=== PATIENT | female | born 1955 | race Caucasian/White ===

== ENCOUNTER 2018-08-22 08:53 | Emergency (ER) | payer OTHER ==
[~2018-08-22] VITALS: Ht 160 cm; Wt 77.1 kg
[~2018-08-22 08:53] MED LIST: CARAFATE1 GM PO; CEFZIL250 MG; OMEPRAZOLE20 MG PO; Z.0.ATENOLOL25 MG; Z.0.BENTYL10 MG; Z.0.SIMVASTATIN10 MG PO; Z.0.SINGULAIR10 MG
[2018-08-22] MEDS ORDERED: MUPIROCIN 2% OINT 22 GM TUBE TOP ONE (09:15)
[2018-08-22] MEDS ORDERED: ACETAMINOPHEN 325 MG TAB PO ONE (10:00)
[2018-08-22] MEDS ORDERED: LIDOCAINE HCL 1% LOCAL INJ 20 ML VIAL INJ ONE (10:00)
== END 2018-08-22 10:01 | disposition home or self-care (01) ==
LOC: FSED 08:53
DX: S61.217A Laceration without foreign body of left little finger without damage to nail, initial encounter (principal); M25.561 Pain in right knee; W18.39XA Other fall on same level, initial encounter; Y92.22 Religious institution as the place of occurrence of the external cause
CPT/HCPCS: 12001; 99284; J2001

== ENCOUNTER 2020-08-12 21:41 | Emergency (ER) | payer MEDICARE, OTHER ==
[~2020-08-12] VITALS: Ht 160 cm; Wt 77.1 kg
[2020-08-12] MEDS ORDERED: ONDANSETRON HCL INJ 2MG/ML 2ML 2 MG/ML VIAL IV STA (22:12)
[2020-08-12] MEDS ORDERED: PANTOPRAZOLE 40 MG 10ML VIAL IV STA (22:12)
[2020-08-12] MEDS ORDERED: DICYCLOMINE HCL 20 MG/2 ML VIAL IM ONE ×2 (22:15→22:29)
[2020-08-12] MEDS ORDERED: MORPHINE SULFATE INJ 4 MG/ML INJ 1ML IV PRN (22:15)
[2020-08-12] MEDS ORDERED: ASPIRIN 81 MG CHEW TAB PO ONE (22:15)
--- NOTE | 2020-08-12 22:22 | Emergency Department Note ---
History of Present Illnes History of Present Illness Chief Complaint: Abdominal Complaints History of Present Illness This is a 64 year old female . Chief Complaint Comment 64 Y/O FEMALE PT AAOX3 PRESENTS TO THE ER C/O LLQ ABD PAIN WITH SLIGHT NAUSEA ONSET THIS AFTERNOON; PT DENIES DIARRHEA/FEVER; HX OF IBS; PT STATES SHE WAS PLANNING ON SEEING HER PCP IN THE AM BUT COULDN'T TAKE THE PAIN ANY LONGER; NAD NOTED AT THIS TIME; RESP EVEN/UNLABORED; SKIN WARM, DRY AND COLOR WNL FOR PT; 20G IV CATH PLACED IN RT FA; BLOOD OBTAINED FOR ANALYSIS; PT GIVEN SPECIMEN CUP FOR UA; ER MD IN TRIAGE FOR INITIAL EVAL. Historian: Patient Arrival Mode: Car Onset (how long ago): day(s) Severity: mild Duration (how long): day(s) Timing of current episode: constant Chronicity: new Past Medical/Family History Physician Review I have reviewed the patient's past medical and family history. Any updates have been documented here. Past Medical History Recent Fever: No Clinical Suspicion of Infectio: No New/Unexplained Change in Ment: No Past Medical History: GERD, Hyperlipedemia Other Medical History: IBS Past Surgical History: Cholecysctectomy, Hysterectomy, Other Surgery: LT ARM SX Other Last Tetanus: < 5 yrs Review of Systems Review of Systems Constitutional: Reports no symptoms EENTM: Reports no symptoms Cardiovascular: Reports no symptoms Respiratory: Reports no symptoms Gastrointestinal: Reports as per HPI, Reports abdominal pain Genitourinary: Reports no symptoms Musculoskeletal: Reports no symptoms Integumentary: Reports no symptoms Neurological: Reports no symptoms Psychological: Reports no symptoms Endocrine: Reports no symptoms Hematological/Lymphatic: Reports no symptoms Physical Exam Related Data Allergies: Coded Allergies: naproxen sodium (Verified Allergy, Unknown, 08/22/18) Triage Vital Signs Vital Signs Date Time Temp Pulse Resp B/P (MAP) Pulse Ox O2 Delivery O2 Flow Rate FiO2 08/12/20 22:04 98.6 89 20 148/84 98 Room Air Vital signs reviewed: Yes Physical Exam CONSTITUTIONAL Constitutional: Present well-developed, Present well-nourished HENT HENT: Present normocephalic, Present atraumatic, Present oropharynx clear/moist, Present nose normal HENT L/R: Present left ext ear normal, Present right ext ear normal EYES Eyes: Reports PERRL, Reports conjunctivae normal NECK Neck: Present ROM normal PULMONARY Pulmonary: Present effort normal, Present breath sounds normal CARDIOVASCULAR Cardiovascular: Present regular rhythm, Present heart sounds normal, Present capillary refill normal, Present normal rate GASTROINTESTINAL Abdominal: Present soft, Present bowel sounds normal, Present tender GENITOURINARY Genitourinary: Present exam deferred SKIN Skin: Present warm, Present dry MUSCULOSKELETAL Musculoskeletal: Present ROM normal NEUROLOGICAL Neurological: Present alert, Present oriented x 3, Present no gross motor or sensory deficits PSYCHOLOGICAL Psychological: Present mood/affect normal, Present judgement normal Results Laboratory Lab results reviewed: Yes Laboratory comments Laboratory Tests Test 08/12/20 22:21 08/12/20 22:09 White Blood Count 11.25 x10e3/uL (4.8-10.8) Red Blood Count 4.48 x10e6/uL (3.6-5.1) Hemoglobin 13.8 g/dL (12.0-16.0) Hematocrit 42.8 % (34.2-44.1) Mean Corpuscular Volume 95.5 fL (81-99) Mean Corpuscular Hemoglobin 30.8 pg (28-32) Mean Corpuscular Hemoglobin Concent 32.2 g/dL (31-35) Red Cell Distribution Width 12.9 % (11.7-14.4) Platelet Count 221 x10e3/uL (140-360) Neutrophils (%) (Auto) 73.0 % (38.7-80.0) Lymphocytes (%) (Auto) 16.2 % (18.0-39.1) Monocytes (%) (Auto) 9.0 % (4.4-11.3) Eosinophils (%) (Auto) 1.0 % (0.0-6.0) Basophils (%) (Auto) 0.4 % (0.0-1.0) Neutrophils # (Auto) 8.2 (2.1-6.9) Lymphocytes # (Auto) 1.8 (1.0-3.2) Monocytes # (Auto) 1.0 (0.2-0.8) Eosinophils # (Auto) 0.1 (0.0-0.4) Basophils # (Auto) 0.1 (0.0-0.1) Absolute Immature Granulocyte (auto 0.05 x10e3/uL (0-0.1) Sodium Level 139 mmol/L (136-145) Potassium Level 4.3 mmol/L (3.5-5.1) Chloride Level 101 mmol/L (98-107) Carbon Dioxide Level 26 mmol/L (22-29) Anion Gap 16.3 mmol/L (8-16) Blood Urea Nitrogen < 2 mg/dL (7-26) Creatinine 0.71 mg/dL (0.57-1.11) Estimat Glomerular Filtration Rate > 60 ML/MIN (60-) BUN/Creatinine Ratio 24 (6-25) Glucose Level 111 mg/dL (74-118) Calcium Level 9.3 mg/dL (8.4-10.2) Total Bilirubin 0.6 mg/dL (0.2-1.2) Aspartate Amino Transf (AST/SGOT) 24 IU/L (5-34) Alanine Aminotransferase (ALT/SGPT) 24 IU/L (0-55) Alkaline Phosphatase 80 IU/L (40-150) Creatine Kinase 111 IU/L (29-168) Creatine Kinase MB 1.20 ng/mL (0-5.0) Troponin I < 0.001 ng/mL (0-0.300) Total Protein 7.6 g/dL (6.5-8.1) Albumin 3.9 g/dL (3.5-5.0) Globulin 3.7 g/dL (2.3-3.5) Albumin/Globulin Ratio 1.1 (0.8-2.0) Lipase 17 U/L (8-78) Urine Color Yellow (YELLOW) Urine Clarity Clear (CLEAR) Urine pH 6.5 (5 - 7) Urine Specific Liscomb >=1.030 (1.010-1.025) Urine Protein Negative (NEGATIVE) Urine Glucose (UA) Negative (NEGATIVE) Urine Ketones Negative (NEGATIVE) Urine Blood Trace (NEGATIVE) Urine Nitrite Negative (NEGATIVE) Urine Bilirubin Negative (NEGATIVE) Urine Urobilinogen 0.2 mg/dL (0.2 - 1) Urine Leukocyte Esterase Negative (NEGATIVE) Urine RBC 6-10 /HPF (0-5) Urine WBC 6-10 /HPF (0-5) Urine Epithelial Cells Few /LPF (NONE) Urine Bacteria Few /HPF (NONE) Aspirin 81 mg PRN ONCE PO ; Start 08/12/20 at 22:15; Stop 08/12/20 at 22:21; Status DC Dicyclomine HCl 20 mg ONCE ONCE IM Last administered on 08/12/20at 22:29; Admin Dose 20 MG; Start 08/12/20 at 22:15; Stop 08/12/20 at 22:21; Status DC Pantoprazole Sodium 40 mg NOW STAT IV Last administered on 08/12/20at 22:29; Admin Dose 40 MG; Start 08/12/20 at 22:12; Stop 08/12/20 at 22:22; Status DC Morphine Sulfate 4 mg ONCE PRN IV SEVERE PAIN (7-10) Last administered on 08/12/20at 22:51; Admin Dose 4 MG; Start 08/12/20 at 22:15; Stop 08/19/20 at 22:14 Ondansetron HCl 4 mg NOW STAT IV Last administered on 08/12/20at 22:29; Admin Dose 4 MG; Start 08/12/20 at 22:12; Stop 08/12/20 at 22:22; Status DC Dicyclomine HCl 20 mg STK-MED ONCE IM ; Start 08/12/20 at 22:29; Stop 08/12/20 at 22:22; Status DC Ondansetron HCl 4 mg STK-MED ONCE .ROUTE ; Start 08/12/20 at 22:30; Stop 08/12/20 at 22:23; Status DC Pantoprazole Sodium 40 mg STK-MED ONCE .ROUTE ; Start 08/12/20 at 22:30; Stop 08/12/20 at 22:23; Status DC Sodium Chloride 50 ml @ ud STK-MED ONCE .ROUTE ; Start 08/12/20 at 23:30; Stop 08/12/20 at 23:23; Status DC Iopamidol 74,000 mg STK-MED ONCE INJ ; Start 08/12/20 at 23:30; Stop 08/12/20 at 23:23; Status DC Imaging Imaging results reviewed: Yes Assessment & Plan Medical Decision Making MDM Differential diagnosis includes: pancreatitis, AAA, cholecystitis, choledocholithiasis, cholangitis, mesenteric ischemia, small bowel obstruction, diverticulitis, colitis, appendicitis, or pelvic etiology such as ovarian torsion, TOA, or ectopic . Abdominal exam without peritoneal signs. No evidence of acute abdomen at this time. Well appearing. Low suspicion for acute hepatobiliary disease (includng acute cholecystitis), acute pancreatitis, PUD (including perforation), acute infectious processes (pneumonia, hepatitis, pyelonephritis), acute appendicitis, vascular catastrophe, bowel obstruction or viscus perforation. Presentation not consistent with other acute, emergent causes of abdominal pain at this time. Plan: labs, UA, CT AP, pain control, serial reassessment Patients symptoms not typical for emergent causes of abdominal pain such as, but not limited to, appendicitis, abdominal aortic aneurysm, surgical biliary disease, pancreatitis, SBO, mesenteric ischemia, serious intra-abdominal bacterial illness. Doubt atypical ACS. Pt tolerating PO. Disposition: Patient will be discharged with strict return precautions and follow up with primary MD within 12-24 hours for further evaluation. Patient understands that this still may have an early presentation of an emergent medical condition such as appendicitis that will require a recheck. A CT scan was performed to evaluate for potential causes of the abdominal pain, however, neither the clinical exam nor the CT has identified an emergent etiology for the abdominal pain. Specifically, given the benign exam, the laboratory studies, and unremarkable CT, I have a very low suspicion for appendicitis, ischemic bowel, bowel perforation, or any other life threatening disease. I have discussed with the patient the level of uncertainty with undifferentiated abdominal pain and clearly explained the need to follow-up as noted on the discharge instructions, or return to the Emergency Department immediately if the pain worsens, develops fever, persistent and uncontrollable vomiting, or for any new symptoms or concerns. Assessment & Plan Final Impression: (1) IBS (irritable bowel syndrome) (2) Diverticulosis Depart Disposition: HOME, SELF-CARE Last Vital Signs Date Time Temp Pulse Resp B/P (MAP) Pulse Ox O2 Delivery O2 Flow Rate FiO2 08/12/20 22:04 98.6 89 20 148/84 98 Room Air Home Meds Reported Medications Omeprazole (OMEPRAZOLE) 20 Mg Capsule.dr, 20 MG PO DAILY 03/16/14 Sucralfate (CARAFATE) 1 Gm Tablet, 10 MG PO TID 03/16/14 Cefprozil (Cefzil) 250 Mg Tablet, BID 09/02/11 Simvastatin (Simvastatin) 10 Mg Tablet, 15 MG PO HS, 0 Refills 09/02/11 Montelukast Sodium (Singulair) 10 Mg Tablet, QD 09/02/11 Dicyclomine Hcl (Bentyl) 10 Mg Capsule, Q 6HRS 09/02/11 JARED GRULLON, DO Aug 12, 2020 22:17
[2020-08-12 22:24] LABS: BASOPHILS # (AUTO) 0.1 (0.0-0.1); BASOPHILS % 0.4 % (0.0-1.0); EOSINOPHILS # (AUTO) 0.1 (0.0-0.4); HEMATOCRIT 42.8 % (34.2-44.1); HEMOGLOBIN 13.8 g/dL (12.0-16.0); LYMPHOCYTES # (AUTO) 1.8 (1.0-3.2); LYMPHOCYTES % 16.2 % (18.0-39.1); MEAN CORPUSCULAR HEMOGLOBIN 30.8 pg (28-32); MEAN CORPUSCULAR HGB CONC 32.2 g/dL (31-35); MEAN CORPUSCULAR VOLUME 95.5 fL (81-99); NEUTROPHILS # (AUTO) 8.2 (2.1-6.9); PLATELET COUNT 221 x10e3/uL (140-360); RED BLOOD COUNT 4.48 x10e6/uL (3.6-5.1); RED CELL DISTRIBUTION WIDTH 12.9 % (11.7-14.4)
[2020-08-12] MEDS ORDERED: PANTOPRAZOLE 40 MG 10ML VIAL ONE (22:30)
[2020-08-12] MEDS ORDERED: ONDANSETRON HCL INJ 2MG/ML 2ML 2 MG/ML VIAL ONE (22:30)
[2020-08-12 22:38] LABS: BILIRUBIN,URINE NEGATIVE (NEGATIVE); CLARITY,URINE CLEAR (CLEAR); COLOR,URINE YELLOW (YELLOW); KETONES,URINE NEGATIVE (NEGATIVE); LEUKOCYTE ESTERASE ,URINE NEGATIVE (NEGATIVE); NITRITE,URINE NEGATIVE (NEGATIVE); PROTEIN,URINE DIPSTICK NEGATIVE (NEGATIVE); URINE UROBILINOGEN 0.2 mg/dL (0.2 - 1)
[2020-08-12 22:44] LABS: ALANINE AMINOTRANSFERASE 24 IU/L (0-55); ALBUMIN 3.9 g/dL (3.5-5.0); ALBUMIN/GLOBULIN RATIO 1.1 (0.8-2.0); ALKALINE PHOSPHATASE 80 IU/L (40-150); ANION GAP 16.3 mmol/L (8-16); CALCIUM 9.3 mg/dL (8.4-10.2); CARBON DIOXIDE 26 mmol/L (22-29); CHLORIDE 101 mmol/L (98-107); CREATINE KINASE 111 IU/L (29-168); CREATININE, SERUM 0.71 mg/dL (0.57-1.11); EST GLOMERULAR FILTRATION RATE > 60 ML/MIN (60-); GLUCOSE 111 mg/dL (74-118); POTASSIUM 4.3 mmol/L (3.5-5.1); SODIUM 139 mmol/L (136-145)
[2020-08-12 22:48] LABS: BLOOD UREA NITROGEN < 2 mg/dL (7-26)
[2020-08-12 23:05] LABS: BUN/CREATININE RATIO 24 (6-25)
[2020-08-12 23:11] LABS: BACTERIA,URINE FEW /HPF; EPITHELIAL CELLS,URINE FEW /LPF
[2020-08-12] MEDS ORDERED: SODIUM CHLORIDE 0.9% 50ML 50 ML ONE (23:30)
[2020-08-12] MEDS ORDERED: IOPAMIDOL 370 MG/ML 200 ML INFUS..BTL INJ ONE (23:30)
--- OUTSIDE RECORDS SUMMARY | 2020-08-13 00:06 | XMS REPORT | Continuity of Care Document ---
Author Author [facility] t Organization [facility] Address [address] [place] [address] Phone Unavailable Care Team Providers Care Stamping Die Maker Bench Name Role Phone YURY KAUR, ELOISA PCP WHITTINGTON-NANCI, EDUARDO Attphys Unavailable JAM, DAKOTA Attphys Unavailable COLLINS, NELLY Attphys Unavailable PAM, JANEE Attphys Unavailable BEVEREliud, A LEE Attphys Unavailable Payers Payer Name Policy Type Policy Number Effective Date Expiration Date S sujatha MEDICARE PART A AND B [id number] 2018 00:00[facility]00 [id number]00 [facility] Problems This patient has no known problems. Allergies, Adverse Reactions, Alerts Allergy Name Allergy Type Status Severity Reaction(s) Onset Date Inacti ve Date Treating Clinician Comments Source naproxen sodium Allergy to Substance Active 2018-08-22 00:0 0:00 [facility] Medications Ordered Medication Name Filled Medication Name Start Date Stop Da te Current Medication? Ordering Clinician Indication Dosage Frequency Signature (SIG) Comments Components Source Cefprozil (Cefzil) 250 Mg Tablet Cefprozil (Cefzil) 250 Mg Tablet Yes Twice A Day [facility] Dicyclomine Hcl (Bentyl) 10 Mg Capsule Dicyclomine Hcl (Bentyl) 10 Mg Capsule Yes Q 6HRS [facility] Montelukast Sodium (Singulair) 10 Mg Tablet Montelukas t Sodium (Singulair) 10 Mg Tablet Yes Daily [facility] Omeprazole 20 Mg Capsule. Omeprazole 20 Mg Capsule. Yes [address] [facility] Simvastatin 10 Mg Tablet Simvastatin 10 Mg Tablet Yes 15 Bedtime [facility] Sucralfate (Carafate) 1 Gm Tablet Sucralfate (Carafate) 1 Gm Tablet Yes 10 Three Times A Day [facility] Atenolol 25 Mg Tablet, Atenolol 25 Mg Tablet, 2014-03-16 00:00:00 No Daily [facility] Vital Signs Vital Name Observation Time Observation Value Comments Source WEIGHT 2020-07-12 08:26:00 85 kg Procedures This patient has no known procedures. Encounters Start Date/Time End Date/Time Encounter Type Admission Type [facility] Care Department Encounter ID Source 2020-08-06 00:00:00 2020-08-06 00:00:00 Outpatient EDUARDO ARMENTA MDA, MDA [id number] [facility] 2020-08-06 00:00:00 2020-08-06 00:00:00 Outpatient EDUARDO ARMENTA MDA, MDA [id number] [facility] 2020-07-19 00:00:00 2020-07-19 00:00:00 Outpatient EDUARDO ARMENTA MDA, MDA [id number] [facility] 2020-07-12 09:28:57 2020-07-12 23:59:00 Outpatient DAKOTA OSMAN MDA, MDA [id number] [facility] 2020-07-12 08:13:52 2020-07-12 09:21:21 Outpatient EDUARDO ARMENTA MDA, MDA [id number] [facility] 2020-02-01 12:35:53 2020-02-01 13:43:33 Outpatient EDUARDO ARMENTA MDA, MDA [id number] [facility] 2020-02-01 09:56:52 2020-02-01 09:56:52 Outpatient EDUARDO ARMENTA MDA, MDA [id number] [facility] 2019-08-05 13:26:18 2019-08-05 13:26:18 Outpatient NELLY PEDRAZA MDA, MDA [id number] [facility] 2019-08-05 09:13:33 2019-08-05 11:45:33 Outpatient LILI SHEFFIELD MDA, MDA [id number] [facility] 2019-08-05 08:41:10 2019-08-05 08:41:10 Outpatient ISABEL WAN SE, MDA [facility] [id number] [facility] 2019-08-05 08:22:31 2019-08-05 08:22:31 Outpatient LILI SHEFFIELD [facility] [id number] [facility] 2018-08-22 08:53:00 2018-08-22 10:01:00 [facility] [id number] [facility] Results This patient has no known results.
--- NOTE | 2020-08-13 00:22 | Diagnostic Imaging Report ---
EXAM: CT Abdomen and Pelvis WITH contrast INDICATION: ^Y ^abd pain ^[id number] ^[id number] COMPARISON: None available. TECHNIQUE: Abdomen and pelvis were scanned utilizing a multidetector helical scanner from the lung base to the pubic symphysis after administration of IV contrast. Coronal and sagittal reformations were obtained. Dose modulation, iterative reconstruction, and/or weight based adjustment of the mA/kV was utilized to reduce the radiation dose to as low as reasonably achievable. Routine protocol was performed. Scan was performed when during portal venous phase. IV CONTRAST: 100 mL of Isovue-370 ORAL CONTRAST: Water COMPLICATIONS: None RADIATION DOSE: Total DLP: 584.52 mGy*cm Estimated effective dose: (DLP x 0.015 x size factor) mSv CTDIvol has been reviewed. It is below the limits set by the Radiation Protocol Committee (RPC). FINDINGS: LINES and TUBES: None. LOWER THORAX: Unremarkable HEPATOBILIARY: No focal hepatic lesions. Mild biliary dilation, likely due to reservoir effect. GALLBLADDER: Surgically absent. SPLEEN: No splenomegaly. Subcentimeter medial hypodensity, probably a cyst. PANCREAS: No focal masses or ductal dilatation. ADRENALS: No adrenal nodules KIDNEYS/URETERS: Kidneys enhance symmetrically. No hydronephrosis. No cystic or solid mass lesions. No stones. GI TRACT: No abnormal distention or evidence of bowel obstruction. Colonic diverticulosis with wall thickening and pericolonic inflammatory changes in left lower quadrant. Appendix is not visualized. PELVIC ORGANS/BLADDER: Unremarkable. LYMPH NODES: No lymphadenopathy. VESSELS: There is mild atherosclerotic disease in the aorta and major arterial branches. PERITONEUM / RETROPERITONEUM: No free air or fluid. BONES: Degenerative changes of spine. SOFT TISSUES: Unremarkable. IMPRESSION: 1. Colonic diverticulosis with evidence of diverticulitis in left lower quadrant. No abscess formation or perforation. Signed by: Dr. Omar Castillo MD on 08/13/2020 12:18 AM
[2020-08-13 00:35] VITALS: BP 117/56
== END 2020-08-13 00:37 | disposition home or self-care (01) ==
LOC: ER 22:11
DX: R10.32 Left lower quadrant pain (principal); K58.9 Irritable bowel syndrome, unspecified; K57.90 Diverticulosis of intestine, part unspecified, without perforation or abscess without bleeding; K21.9 Gastro-esophageal reflux disease without esophagitis; E78.5 Hyperlipidemia, unspecified
CPT/HCPCS: 36415; 74177; 80053; 81001; 82550; 82553; 83690; 84484; 85025; 99284; C9113; J0500; J2270; J2405; Q9967

== ENCOUNTER → 2023-02-03 | Day surgery (SDC) | payer MEDICARE, OTHER ==
[~2023-02-03] MED LIST changes: +ACETAMINOPHEN 1000 MG/100 ML IV PRN; +ACETAMINOPHEN325 M1 PO; +AMOX TR-K CLV1 EAC1 PO; +ASPIRIN 325 MG TAB PO SCH; +CALCIUM PO; +CELECOXIB 200 MG CAP ONE; +CELECOXIB 200 MG CAP PO SCH; +COQ-10100 MG PO; +DEXAMETHASONE SOD PHOS 10 MG/1 ML VIAL ONE; +DIPHENHYDRAMINE HCL INJ 50 MG/ML VIAL IV PRN; +DOCUSATE SODIUM 100 MG CAP PO PRN; +FENTANYL CITRATE/PF 100MCG/2 ML INJ ONE; +FISH OIL 1,2001 EACH PO; +FLONASE ALLERG9.9 ML INH; +GABAPENTIN 300 MG CAP ONE; +HYDROCODONE/APAP 5MG-325MG TAB PO PRN; +HYDROCODONE/APAP 7.5MG-325MG 1 EA TAB PO PRN; +LACTATED RINGER'S 1,000 ML ONE; +LIDOCAINE HCL 2% LOCAL INJ 5 ML SDV VIAL INJ ONE; +LIVALO2 MG PO; +METOCLOPRAMIDE HCL 10 MG/2ML VIAL ONE; +METRONIDAZOLE500 MG PO; +MIDAZOLAM HCL 2 MG/2 ML VIAL ONE; +ONDANSETRON HCL INJ 2MG/ML 2ML 2 MG/ML VIAL IV PRN; +ONDANSETRON HCL INJ 2MG/ML 2ML 2 MG/ML VIAL ONE; +ONDANSETRON ODT4 MG PO; +POVIDONE IODINE 0.05% 0.05 % ML PO ONE; +PROPOFOL IV EMULSION 10 MG/ML 20 ML VIAL ONE; +ROPIVACAINE 0.5% 5 MG/ML 30 ML SDV ONE; +SEVOFLURANE INHAL SOLN 250 ML PEN BTL ONE; +SODIUM CHLORIDE 0.9% 1000ML 1,000 ML IV SCH; +SODIUM CHLORIDE 0.9% 500ML 500 ML ONE; +SUPER B MAXI C0.4 MG PO; +TRANEXAMIC ACID 20 ML ONE; +TURMERIC500 M1 PO; +VITAMIN C1000 MG PO; +Vancomycin IV 1 GM VIAL ONE; +Vancomycin IV 500 MG ONE; -Z.0.BENTYL10 MG; +Z.0.BENTYL10 MG PO; -Z.0.SINGULAIR10 MG; +Z.0.SINGULAIR10 MG PO; +ZINC PO
[2023-02-03 11:28] VITALS: TEMP 97
[2023-02-03 15:35] VITALS: BP 132/68; PULSE 64; RESP 17; O2SAT 97
== END | disposition home or self-care (01) ==
LOC: OR 08:24
PROVIDERS: ATTEND Specialist
DX: M17.12 Unilateral primary osteoarthritis, left knee (principal); M06.9 Rheumatoid arthritis, unspecified; E78.5 Hyperlipidemia, unspecified; K58.9 Irritable bowel syndrome, unspecified; Z88.8 Allergy status to other drugs, medicaments and biological substances; Z01.812 Encounter for preprocedural laboratory examination; Z01.818 Encounter for other preprocedural examination; Z79.899 Other long term (current) drug therapy; Z68.32 Body mass index [BMI] 32.0-32.9, adult
CPT/HCPCS: 27447; 71046; 73560; 86850; 86900; 86920; 97110; 97116; 97161; 97530 ×2; C1713 ×2; C1776 ×2; J0171; J0690; J1100; J2001; J2250; J2405; J2704; J2765; J2795; J3010; J3370 ×2; J7040; J7121

== ENCOUNTER 2023-02-06 06:37 | Inpatient (IN) | payer MEDICARE, OTHER ==
[~2023-02-06] VITALS: Ht 160 cm; Wt 77.1 kg
[~2023-02-06 06:37] MED LIST changes: -ACETAMINOPHEN 1000 MG/100 ML IV PRN; -ACETAMINOPHEN325 M1 PO; -AMOX TR-K CLV1 EAC1 PO; -ASPIRIN 325 MG TAB PO SCH; -CELECOXIB 200 MG CAP ONE; -CELECOXIB 200 MG CAP PO SCH; -DEXAMETHASONE SOD PHOS 10 MG/1 ML VIAL ONE; -DIPHENHYDRAMINE HCL INJ 50 MG/ML VIAL IV PRN; -DOCUSATE SODIUM 100 MG CAP PO PRN; -FENTANYL CITRATE/PF 100MCG/2 ML INJ ONE; -GABAPENTIN 300 MG CAP ONE; -HYDROCODONE/APAP 5MG-325MG TAB PO PRN; -HYDROCODONE/APAP 7.5MG-325MG 1 EA TAB PO PRN; -LACTATED RINGER'S 1,000 ML ONE; -LIDOCAINE HCL 2% LOCAL INJ 5 ML SDV VIAL INJ ONE; -METOCLOPRAMIDE HCL 10 MG/2ML VIAL ONE; -METRONIDAZOLE500 MG PO; -MIDAZOLAM HCL 2 MG/2 ML VIAL ONE; -ONDANSETRON HCL INJ 2MG/ML 2ML 2 MG/ML VIAL IV PRN; -ONDANSETRON HCL INJ 2MG/ML 2ML 2 MG/ML VIAL ONE; -ONDANSETRON ODT4 MG PO; -POVIDONE IODINE 0.05% 0.05 % ML PO ONE; -PROPOFOL IV EMULSION 10 MG/ML 20 ML VIAL ONE; -ROPIVACAINE 0.5% 5 MG/ML 30 ML SDV ONE; -SEVOFLURANE INHAL SOLN 250 ML PEN BTL ONE; -SODIUM CHLORIDE 0.9% 1000ML 1,000 ML IV SCH; -SODIUM CHLORIDE 0.9% 500ML 500 ML ONE; -TRANEXAMIC ACID 20 ML ONE; -Vancomycin IV 1 GM VIAL ONE; -Vancomycin IV 500 MG ONE
[2023-02-06] MEDS ORDERED: SODIUM CHLORIDE 0.9% 1000ML 1,000 ML IV STA (06:51)
[2023-02-06 07:11] LABS: BASOPHILS % 0.2 % (0.0-1.0); EOSINOPHILS % 0.2 % (0.0-6.0); HEMOGLOBIN 13.2 g/dL (12.0-16.0); LYMPHOCYTES % 14.4 % (18.0-39.1); MEAN CORPUSCULAR HEMOGLOBIN 31.2 pg (28-32); MEAN CORPUSCULAR VOLUME 94.6 fL (81-99); MONOCYTES # (AUTO) 0.9 (0.2-0.8); MONOCYTES % 6.8 % (4.4-11.3); NEUTROPHILS # (AUTO) 10.6 (2.1-6.9); NEUTROPHILS % 78.1 % (38.7-80.0); PLATELET COUNT 204 x10e3/uL (140-360); RED BLOOD COUNT 4.23 x10e6/uL (3.6-5.1); RED CELL DISTRIBUTION WIDTH 13.5 % (11.7-14.4)
[2023-02-06 07:28] LABS: INR 0.92; PROTHROMBIN TIME 12.9 seconds (11.9-14.5)
[2023-02-06 07:33] LABS: ALBUMIN 3.6 g/dL (3.5-5.0); ALBUMIN/GLOBULIN RATIO 0.9 (0.8-2.0); ANION GAP 16.2 mmol/L (8-16); CALCIUM 9.8 mg/dL (8.4-10.2); CREATININE, SERUM 0.75 mg/dL (0.57-1.11); MAGNESIUM 2.3 MG/DL (1.3-2.1); POTASSIUM 4.2 mmol/L (3.5-5.1)
[2023-02-06] MEDS ORDERED: SODIUM CHLORIDE 0.9% 100 ML ONE (07:39)
[2023-02-06] MEDS ORDERED: IOPAMIDOL 370 MG/ML 100 ML INFUS..BTL INJ ONE (07:39)
[2023-02-06] MEDS ORDERED: METRONIDAZOLE 500MG/NS 100ML 100 ML IV SCH (09:30)
[2023-02-06] MEDS: SODIUM CHLORIDE 0.9% 1000ML 1,000 ML IV SCH ×2 (12:01→23:17)
[2023-02-06] MEDS ORDERED: HYDRALAZINE HCL 20 MG/ML VIAL IV PRN (14:15)
[2023-02-06] MEDS ORDERED: ONDANSETRON HCL INJ 2MG/ML 2ML 2 MG/ML VIAL IV PRN (14:15)
[2023-02-06] MEDS ORDERED: ACETAMINOPHEN 325 MG TAB PO PRN (14:15)
[2023-02-06 15:35] VITALS: BP 134/75; PULSE 92; RESP 19; TEMP 98.9; O2SAT 97
[2023-02-06 15:44] VITALS: BP 134/75; PULSE 92; RESP 19; TEMP 98.9; O2SAT 97
[2023-02-06 16:36] LABS: BASOPHILS # (AUTO) 0.1 (0.0-0.1); BASOPHILS % 0.4 % (0.0-1.0); EOSINOPHILS # (AUTO) 0.1 (0.0-0.4); EOSINOPHILS % 0.5 % (0.0-6.0); HEMATOCRIT 36.8 % (34.2-44.1); HEMOGLOBIN 12.1 g/dL (12.0-16.0); LYMPHOCYTES # (AUTO) 1.8 (1.0-3.2); LYMPHOCYTES % 14.3 % (18.0-39.1); MEAN CORPUSCULAR HEMOGLOBIN 30.7 pg (28-32); MEAN CORPUSCULAR HGB CONC 32.9 g/dL (31-35); MEAN CORPUSCULAR VOLUME 93.4 fL (81-99); NEUTROPHILS # (AUTO) 9.8 (2.1-6.9); NEUTROPHILS % 76.5 % (38.7-80.0); PLATELET COUNT 177 x10e3/uL (140-360); RED BLOOD COUNT 3.94 x10e6/uL (3.6-5.1); RED CELL DISTRIBUTION WIDTH 13.5 % (11.7-14.4)
[2023-02-06] MEDS: METRONIDAZOLE 500MG/NS 100ML 100 ML IV SCH ×2 (16:44→22:43)
[2023-02-06 19:15] VITALS: BP 109/54; PULSE 68; RESP 16; TEMP 98.6; O2SAT 97
[2023-02-06 20:00] VITALS: BP 132/67; PULSE 72; RESP 20; TEMP 98.7; O2SAT 99
[2023-02-07] VITALS (7 sets, daily range): BP systolic 109–141; BP diastolic 54–71; PULSE 64–75; RESP 16–19; TEMP 98–99.1; O2SAT 97–100
[2023-02-07] MEDS: METRONIDAZOLE 500MG/NS 100ML 100 ML IV SCH ×4 (05:24→23:08)
[2023-02-07] MEDS: SODIUM CHLORIDE 0.9% 1000ML 1,000 ML IV SCH (05:28)
[2023-02-07 06:07] LABS: BASOPHILS # (AUTO) 0.1 (0.0-0.1); BASOPHILS % 0.4 % (0.0-1.0); EOSINOPHILS # (AUTO) 0.2 (0.0-0.4); EOSINOPHILS % 1.3 % (0.0-6.0); HEMATOCRIT 35.3 % (34.2-44.1); HEMOGLOBIN 11.4 g/dL (12.0-16.0); LYMPHOCYTES # (AUTO) 2.2 (1.0-3.2); LYMPHOCYTES % 17.6 % (18.0-39.1); MEAN CORPUSCULAR HEMOGLOBIN 30.7 pg (28-32); MEAN CORPUSCULAR HGB CONC 32.3 g/dL (31-35); MEAN CORPUSCULAR VOLUME 95.1 fL (81-99); MONOCYTES # (AUTO) 0.9 (0.2-0.8); MONOCYTES % 6.9 % (4.4-11.3); NEUTROPHILS % 73.4 % (38.7-80.0); PLATELET COUNT 172 x10e3/uL (140-360); RED BLOOD COUNT 3.71 x10e6/uL (3.6-5.1); RED CELL DISTRIBUTION WIDTH 13.5 % (11.7-14.4)
[2023-02-07 06:28] LABS: ALBUMIN 2.8 g/dL (3.5-5.0); ALBUMIN/GLOBULIN RATIO 0.9 (0.8-2.0); ANION GAP 14.5 mmol/L (8-16); CALCIUM 8.4 mg/dL (8.4-10.2); CREATININE, SERUM 0.63 mg/dL (0.57-1.11); POTASSIUM 3.5 mmol/L (3.5-5.1)
[2023-02-07 06:51] LABS: CHOL/HDL RATIO 2.2 (3.0-3.6); MAGNESIUM 2.1 MG/DL (1.3-2.1); PHOSPHORUS 2.9 MG/DL (2.3-4.7)
[2023-02-07 07:12] LABS: THYROID STIMULATING HORMONE 0.248 uIU/mL (0.350-4.940)
[2023-02-07 12:46] LABS: BASOPHILS # (AUTO) 0.1 (0.0-0.1); BASOPHILS % 0.4 % (0.0-1.0); EOSINOPHILS # (AUTO) 0.1 (0.0-0.4); EOSINOPHILS % 1.1 % (0.0-6.0); HEMATOCRIT 34.6 % (34.2-44.1); HEMOGLOBIN 11.4 g/dL (12.0-16.0); LYMPHOCYTES # (AUTO) 2.4 (1.0-3.2); LYMPHOCYTES % 19.8 % (18.0-39.1); MEAN CORPUSCULAR HEMOGLOBIN 30.6 pg (28-32); MEAN CORPUSCULAR HGB CONC 32.9 g/dL (31-35); MEAN CORPUSCULAR VOLUME 92.8 fL (81-99); MONOCYTES # (AUTO) 0.8 (0.2-0.8); MONOCYTES % 6.2 % (4.4-11.3); NEUTROPHILS # (AUTO) 8.9 (2.1-6.9); NEUTROPHILS % 72.3 % (38.7-80.0); PLATELET COUNT 197 x10e3/uL (140-360); RED BLOOD COUNT 3.73 x10e6/uL (3.6-5.1); RED CELL DISTRIBUTION WIDTH 13.5 % (11.7-14.4)
[2023-02-07 17:24] LABS: BASOPHILS # (AUTO) 0.1 (0.0-0.1); BASOPHILS % 0.5 % (0.0-1.0); EOSINOPHILS # (AUTO) 0.2 (0.0-0.4); EOSINOPHILS % 1.4 % (0.0-6.0); HEMATOCRIT 35.6 % (34.2-44.1); HEMOGLOBIN 11.8 g/dL (12.0-16.0); LYMPHOCYTES # (AUTO) 2.6 (1.0-3.2); MEAN CORPUSCULAR HEMOGLOBIN 30.8 pg (28-32); MEAN CORPUSCULAR HGB CONC 33.1 g/dL (31-35); MONOCYTES # (AUTO) 0.9 (0.2-0.8); MONOCYTES % 6.6 % (4.4-11.3); NEUTROPHILS # (AUTO) 9.2 (2.1-6.9); NEUTROPHILS % 71.1 % (38.7-80.0); PLATELET COUNT 187 x10e3/uL (140-360); RED BLOOD COUNT 3.83 x10e6/uL (3.6-5.1); RED CELL DISTRIBUTION WIDTH 13.5 % (11.7-14.4)
[2023-02-08] VITALS (8 sets, daily range): BP systolic 111–141; BP diastolic 51–78; PULSE 58–70; RESP 16–18; TEMP 97.4–99.2; O2SAT 95–98
[2023-02-08] MEDS ORDERED: HYDROCODONE/APAP 5MG-325MG TAB PO PRN (00:30)
[2023-02-08] MEDS: SODIUM CHLORIDE 0.9% 1000ML 1,000 ML IV SCH ×2 (02:09→22:04)
[2023-02-08] MEDS: METRONIDAZOLE 500MG/NS 100ML 100 ML IV SCH ×4 (05:00→22:57)
[2023-02-08 06:37] LABS: BASOPHILS # (AUTO) 0.1 (0.0-0.1); BASOPHILS % 0.7 % (0.0-1.0); EOSINOPHILS # (AUTO) 0.3 (0.0-0.4); EOSINOPHILS % 2.9 % (0.0-6.0); HEMATOCRIT 34.2 % (34.2-44.1); HEMOGLOBIN 10.9 g/dL (12.0-16.0); LYMPHOCYTES # (AUTO) 1.9 (1.0-3.2); LYMPHOCYTES % 19.9 % (18.0-39.1); MEAN CORPUSCULAR HEMOGLOBIN 30.4 pg (28-32); MEAN CORPUSCULAR HGB CONC 31.9 g/dL (31-35); MEAN CORPUSCULAR VOLUME 95.5 fL (81-99); MONOCYTES # (AUTO) 0.7 (0.2-0.8); MONOCYTES % 7.2 % (4.4-11.3); NEUTROPHILS # (AUTO) 6.8 (2.1-6.9); PLATELET COUNT 201 x10e3/uL (140-360); RED BLOOD COUNT 3.58 x10e6/uL (3.6-5.1); RED CELL DISTRIBUTION WIDTH 13.4 % (11.7-14.4)
[2023-02-08 08:25] LABS: WBC,FECAL (FECAL LACTOFERRIN) POSITIVE (NEGATIVE)
[2023-02-08 09:10] LABS: ALBUMIN 2.8 g/dL (3.5-5.0); ANION GAP 12.4 mmol/L (8-16); CALCIUM 8.3 mg/dL (8.4-10.2); CREATININE, SERUM 0.66 mg/dL (0.57-1.11); POTASSIUM 3.4 mmol/L (3.5-5.1)
[2023-02-09 01:06] VITALS: BP 110/72; PULSE 53; RESP 16; TEMP 97.2; O2SAT 97
[2023-02-09 04:36] VITALS: BP 111/58; PULSE 59; RESP 16; TEMP 98.3; O2SAT 97
[2023-02-09] MEDS: SODIUM CHLORIDE 0.9% 1000ML 1,000 ML IV SCH (04:40)
[2023-02-09] MEDS: METRONIDAZOLE 500MG/NS 100ML 100 ML IV SCH (05:14)
[2023-02-09 05:48] LABS: BASOPHILS # (AUTO) 0.1 (0.0-0.1); BASOPHILS % 0.7 % (0.0-1.0); EOSINOPHILS # (AUTO) 0.4 (0.0-0.4); EOSINOPHILS % 4.3 % (0.0-6.0); HEMATOCRIT 34.1 % (34.2-44.1); HEMOGLOBIN 11.3 g/dL (12.0-16.0); LYMPHOCYTES # (AUTO) 2.5 (1.0-3.2); LYMPHOCYTES % 28.5 % (18.0-39.1); MEAN CORPUSCULAR HEMOGLOBIN 30.9 pg (28-32); MEAN CORPUSCULAR HGB CONC 33.1 g/dL (31-35); MEAN CORPUSCULAR VOLUME 93.2 fL (81-99); MONOCYTES # (AUTO) 0.8 (0.2-0.8); MONOCYTES % 8.7 % (4.4-11.3); NEUTROPHILS # (AUTO) 5.1 (2.1-6.9); NEUTROPHILS % 57.5 % (38.7-80.0); PLATELET COUNT 211 x10e3/uL (140-360); RED BLOOD COUNT 3.66 x10e6/uL (3.6-5.1); RED CELL DISTRIBUTION WIDTH 13.6 % (11.7-14.4)
[2023-02-09 07:59] VITALS: BP 140/73; PULSE 66; RESP 18; TEMP 98.6; O2SAT 98
[2023-02-09 08:53] VITALS: BP 140/73; PULSE 66; RESP 18; TEMP 98.6; O2SAT 98
[2023-02-09] MEDS ORDERED: POTASSIUM CHLORIDE 20 MEQ TAB CR PO ONE (10:35)
[2023-02-09] MEDS ORDERED: AMOX TR-K CLV1 EAC1 PO (10:36)
[2023-02-09] MEDS ORDERED: ACETAMINOPHEN325 M1 PO (10:36)
[2023-02-09] MEDS ORDERED: ONDANSETRON ODT4 MG PO (10:36)
[2023-02-09] MEDS ORDERED: METRONIDAZOLE500 MG PO (10:36)
[2023-02-09 12:10] VITALS: BP 118/69; PULSE 74; RESP 20; TEMP 98.6; O2SAT 98
== END 2023-02-09 12:23 | disposition home or self-care (01) | DRG 379 ==
LOC: ER 06:44 → ERHOLD 09:52 → MED/SURG3 14:55 → OBSVTOIN 02-08 14:56
PROVIDERS: ADMIT Internal Medicine; ATTEND Internal Medicine
DX: K57.33 Diverticulitis of large intestine without perforation or abscess with bleeding (principal); E78.5 Hyperlipidemia, unspecified; Z96.652 Presence of left artificial knee joint; K58.9 Irritable bowel syndrome, unspecified; Z98.890 Other specified postprocedural states; Z91.09 Other allergy status, other than to drugs and biological substances; Z79.899 Other long term (current) drug therapy
CPT/HCPCS: 0223U; 36415; 74174; 80053; 80061; 83036; 83630; 83735; 84100; 84443; 85025; 85610; 85730; 87045; 87177; 87324; 87449; 99285; G0378; J2405; J2543; J7030; J7050; Q9967

== ENCOUNTER 2023-03-06 09:56 | Outpatient (RCR) | payer MEDICARE, OTHER ==
[~2023-03-06 09:56] MED LIST changes: +ACETAMINOPHEN325 M1 PO; +AMOX TR-K CLV1 EAC1 PO; +METRONIDAZOLE500 MG PO; +ONDANSETRON ODT4 MG PO
== END 2023-03-13 ==
LOC: PT 09:56
PROVIDERS: ATTEND Specialist
DX: Z47.1 Aftercare following joint replacement surgery (principal); Z96.652 Presence of left artificial knee joint

== ENCOUNTER 2023-07-01 10:35 | Inpatient (IN) | payer MEDICARE, OTHER ==
[~2023-07-01] VITALS: Ht 160 cm; Wt 81.6 kg
[2023-07-01 12:23] LABS: BASOPHILS # (AUTO) 0.1 (0.0-0.1); BASOPHILS % 1.1 % (0.0-1.0); EOSINOPHILS # (AUTO) 0.2 (0.0-0.4); EOSINOPHILS % 3.2 % (0.0-6.0); HEMATOCRIT 39.7 % (34.2-44.1); HEMOGLOBIN 13.4 g/dL (12.0-16.0); LYMPHOCYTES # (AUTO) 2.4 (1.0-3.2); LYMPHOCYTES % 38.3 % (18.0-39.1); MEAN CORPUSCULAR HEMOGLOBIN 31.4 pg (28-32); MEAN CORPUSCULAR HGB CONC 33.8 g/dL (31-35); MONOCYTES # (AUTO) 0.6 (0.2-0.8); MONOCYTES % 9.2 % (4.4-11.3); PLATELET COUNT 178 x10e3/uL (140-360); RED BLOOD COUNT 4.27 x10e6/uL (3.6-5.1); RED CELL DISTRIBUTION WIDTH 13.8 % (11.7-14.4); WHITE BLOOD COUNT 6.19 x10e3/uL (4.8-10.8)
[2023-07-01 13:16] LABS: INR 0.95; PARTIAL THROMBOPLASTIN TIME 25.6 seconds (23.8-35.5); PROTHROMBIN TIME 13.3 seconds (11.9-14.5)
[2023-07-01 13:23] LABS: ALBUMIN 3.9 g/dL (3.5-5.0); ANION GAP 13.2 mmol/L (8-16); CALCIUM 10.1 mg/dL (8.4-10.2); CREATININE, SERUM 0.69 mg/dL (0.57-1.11); MAGNESIUM 2.3 MG/DL (1.3-2.1); POTASSIUM 5.2 mmol/L (3.5-5.1)
[2023-07-01 13:24] LABS: ALBUMIN/GLOBULIN RATIO 1.2 (0.8-2.0)
[2023-07-01] MEDS ORDERED: HEPARIN 25,000 UNIT/D5W 250ML 1,200 UNIT in DEXTROSE 5% 250ML 250 ML IV SCH (13:45)
[2023-07-01] MEDS ORDERED: HEPARIN SOD (PORCINE) 1000 UNIT/ML SDV IV ONE (13:55)
[2023-07-01] MEDS: HEPARIN 25,000 UNIT/D5W 250ML 1,200 UNIT in DEXTROSE 5% 250ML 250 ML IV SCH (14:20)
[2023-07-01 15:32] VITALS: BP 162/79; PULSE 55; RESP 18; TEMP 98; O2SAT 100
[2023-07-01 15:37] VITALS: BP 162/79; PULSE 55; RESP 18; TEMP 98; O2SAT 100
[2023-07-01 16:23] VITALS: BP 162/79; PULSE 55; RESP 18; TEMP 98; O2SAT 100
[2023-07-01 20:00] VITALS: BP 121/69; PULSE 59; RESP 18; TEMP 97.4; O2SAT 98
[2023-07-01 21:00] VITALS: BP 121/69; PULSE 59; RESP 18; TEMP 97.4; O2SAT 98
[2023-07-02] VITALS (7 sets, daily range): BP systolic 99–115; BP diastolic 52–87; PULSE 56–67; RESP 15–19; TEMP 97–98.1; O2SAT 95–100
[2023-07-02] MEDS: HEPARIN 25,000 UNIT/D5W 250ML 1,200 UNIT in DEXTROSE 5% 250ML 250 ML IV SCH (00:13)
[2023-07-02] MEDS ORDERED: ONDANSETRON HCL INJ 2MG/ML 2ML 2 MG/ML VIAL IV PRN (06:00)
[2023-07-02] MEDS ORDERED: MONTELUKAST SODIUM 10 MG TAB PO PRN (06:00)
[2023-07-02] MEDS ORDERED: ACETAMINOPHEN 325 MG TAB PO PRN (06:00)
[2023-07-02] MEDS ORDERED: MELATONIN 3 MG TAB PO PRN (06:00)
[2023-07-02] MEDS ORDERED: DICYCLOMINE HCL 10 MG CAP PO SCH (06:00)
[2023-07-02] MEDS ORDERED: DOCUSATE SODIUM 100 MG CAP PO PRN (06:00)
[2023-07-02] MEDS ORDERED: METOPROLOL TARTRATE INJ 1 MG/ML VIAL IV PRN (06:00)
[2023-07-02] MEDS ORDERED: FLUTICASONE PROPIONATE NASAL SPRAY NS PRN (06:00)
[2023-07-02] MEDS: FAMOTIDINE 20 MG TAB PO SCH ×2 (08:37→17:47)
[2023-07-02] MEDS ORDERED: APIXABAN 5 MG TABLET PO ONE (13:30)
[2023-07-02] MEDS: APIXABAN 5 MG TABLET PO SCH (21:00)
[2023-07-03] VITALS (7 sets, daily range): BP systolic 89–121; BP diastolic 57–72; PULSE 53–64; RESP 16–20; TEMP 97.4–98.3; O2SAT 96–100
[2023-07-03] MEDS: FAMOTIDINE 20 MG TAB PO SCH ×2 (09:38→16:11)
[2023-07-03] MEDS: APIXABAN 5 MG TABLET PO SCH ×2 (09:40→21:16)
[2023-07-03] MEDS ORDERED: SODIUM CHLORIDE 0.9% 500ML 500 ML IV ONE (10:00)
[2023-07-03 10:31] LABS: BASOPHILS # (AUTO) 0.1 (0.0-0.1); EOSINOPHILS # (AUTO) 0.2 (0.0-0.4); EOSINOPHILS % 3.2 % (0.0-6.0); HEMATOCRIT 39.3 % (34.2-44.1); HEMOGLOBIN 12.8 g/dL (12.0-16.0); LYMPHOCYTES # (AUTO) 1.7 (1.0-3.2); MEAN CORPUSCULAR HEMOGLOBIN 30.9 pg (28-32); MEAN CORPUSCULAR HGB CONC 32.6 g/dL (31-35); MEAN CORPUSCULAR VOLUME 94.9 fL (81-99); MONOCYTES # (AUTO) 0.5 (0.2-0.8); MONOCYTES % 10.1 % (4.4-11.3); NEUTROPHILS # (AUTO) 2.6 (2.1-6.9); NEUTROPHILS % 51.5 % (38.7-80.0); PLATELET COUNT 188 x10e3/uL (140-360); RED BLOOD COUNT 4.14 x10e6/uL (3.6-5.1); RED CELL DISTRIBUTION WIDTH 13.7 % (11.7-14.4); WHITE BLOOD COUNT 4.97 x10e3/uL (4.8-10.8)
[2023-07-03 11:00] LABS: CALCIUM 9.3 mg/dL (8.4-10.2); CREATININE, SERUM 0.8 mg/dL (0.57-1.11)
[2023-07-03 11:16] LABS: MAGNESIUM 2.2 MG/DL (1.3-2.1); PHOSPHORUS 3.4 MG/DL (2.3-4.7)
[2023-07-03] MEDS ORDERED: ONDANSETRON HCL 4 MG ORAL DISINTEGRATING TAB PO PRN (12:45)
[2023-07-04] VITALS: BP 102/57; PULSE 50; RESP 18; TEMP 97.9; O2SAT 98
[2023-07-04 04:00] VITALS: BP 106/52; PULSE 60; RESP 18; TEMP 97.8; O2SAT 98
[2023-07-04] MEDS ORDERED: LIVALO2 MG PO (08:17)
[2023-07-04] MEDS ORDERED: ELIQUIS5 MG PO (08:17)
[2023-07-04] MEDS ORDERED: FAMOTIDINE20 MG PO (08:17)
[2023-07-04 08:26] VITALS: BP 133/59; PULSE 60; RESP 20; TEMP 98.1; O2SAT 100
[2023-07-04] MEDS: FAMOTIDINE 20 MG TAB PO SCH (10:36)
[2023-07-04] MEDS: APIXABAN 5 MG TABLET PO SCH (10:36)
[2023-07-04 10:43] VITALS: BP 133/59; PULSE 60; RESP 20; TEMP 98.1; O2SAT 100
== END 2023-07-04 11:22 | disposition home or self-care (01) | DRG 301 ==
LOC: ER 11:14 → ERHOLD 13:40 → MED/SURG 15:49
PROVIDERS: ADMIT Internal Medicine; ATTEND Internal Medicine
DX: I82.432 Acute embolism and thrombosis of left popliteal vein (principal); I82.442 Acute embolism and thrombosis of left tibial vein; I10 Essential (primary) hypertension; E66.9 Obesity, unspecified; Z68.31 Body mass index [BMI] 31.0-31.9, adult; I95.9 Hypotension, unspecified; Z79.899 Other long term (current) drug therapy; Z20.822 Contact with and (suspected) exposure to COVID-19
CPT/HCPCS: 36415; 71045; 80048; 80053; 83735; 84100; 84132; 85025; 85610; 85730; 93005; 93970; 99284; J1644; J7040; U0002

== ENCOUNTER 2024-06-14 13:48 | Emergency (ER) | payer MEDICARE, OTHER ==
[~2024-06-14] VITALS: Ht 160 cm; Wt 81.6 kg
[~2024-06-14 13:48] MED LIST changes: +ELIQUIS5 MG PO; +FAMOTIDINE20 MG PO
[2024-06-14 14:15] VITALS: PULSE 77; RESP 15; TEMP 97; O2SAT 100
== END 2024-06-14 15:35 | disposition home or self-care (01) ==
LOC: ER 14:20
DX: R60.9 Edema, unspecified (principal); I83.813 Varicose veins of bilateral lower extremities with pain; E78.5 Hyperlipidemia, unspecified; K21.9 Gastro-esophageal reflux disease without esophagitis; Z87.19 Personal history of other diseases of the digestive system
CPT/HCPCS: 93971; 99284

== ENCOUNTER 2024-08-10 10:36 | Emergency (ER) | payer MEDICARE, OTHER ==
[~2024-08-10] VITALS: Ht 160 cm; Wt 81.6 kg
[2024-08-10 10:44] VITALS: PULSE 70; RESP 15; TEMP 98
[2024-08-10] MEDS: SODIUM CHLORIDE 0.9% 1000ML 1,000 ML IV SCH (10:57)
[2024-08-10] MEDS: DIPHENHYDRAMINE HCL 25 MG CAP PO ONE (10:58)
[2024-08-10] MEDS: METOCLOPRAMIDE HCL 10 MG/2ML VIAL IV ONE (10:58)
[2024-08-10] MEDS: KETOROLAC TROMETHAMINE 30 MG/ML VIAL IV STA (10:59)
[2024-08-10 11:13] LABS: CORONAVIRUS COVID-19 AG NEGATIVE (NEGATIVE); INFLUENZA A AG NEGATIVE (NEGATIVE); INFLUENZA B AG NEGATIVE (NEGATIVE)
[2024-08-10] MEDS: DEXAMETHASONE SOD PHOS 10 MG/1 ML VIAL IV ONE (11:44)
[2024-08-10] MEDS: MAGNESIUM SULF 1GRAM/DEXTROSE 100 ML IV ONE (11:44)
[2024-08-10 12:48] VITALS: BP 148/84; PULSE 88; RESP 18; TEMP 98.2; O2SAT 98
== END 2024-08-10 12:50 | disposition home or self-care (01) ==
LOC: ER 10:39
DX: R51.9 Headache, unspecified (principal); R05.3 Chronic cough; E78.5 Hyperlipidemia, unspecified; K21.9 Gastro-esophageal reflux disease without esophagitis
CPT/HCPCS: 70450; 87428; 99284; J1100; J1885; J2765; J3475; J7030

== ENCOUNTER 2024-12-26 11:15 | Emergency (ER) | payer MEDICARE, OTHER ==
[~2024-12-26] VITALS: Ht 160 cm; Wt 81.6 kg
[2024-12-26 11:28] VITALS: TEMP 97.8
[2024-12-26 12:04] LABS: BASOPHILS # (AUTO) 0.1 (0.0-0.1); BASOPHILS % 0.7 % (0.0-1.0); EOSINOPHILS # (AUTO) 0.2 (0.0-0.4); EOSINOPHILS % 2.8 % (0.0-6.0); HEMATOCRIT 41.5 % (34.2-44.1); HEMOGLOBIN 13.4 g/dL (12.0-16.0); LYMPHOCYTES # (AUTO) 2.2 (1.0-3.2); LYMPHOCYTES % 30.5 % (18.0-39.1); MEAN CORPUSCULAR HEMOGLOBIN 31.2 pg (28-32); MEAN CORPUSCULAR HGB CONC 32.3 g/dL (31-35); MEAN CORPUSCULAR VOLUME 96.5 fL (81-99); MONOCYTES # (AUTO) 0.6 (0.2-0.8); MONOCYTES % 8.1 % (4.4-11.3); NEUTROPHILS # (AUTO) 4.2 (2.1-6.9); NEUTROPHILS % 57.8 % (38.7-80.0); PLATELET COUNT 213 x10e3/uL (140-360); WHITE BLOOD COUNT 7.24 x10e3/uL (4.8-10.8)
[2024-12-26 12:09] LABS: ALBUMIN 3.7 g/dL (3.5-5.0); ANION GAP 13.8 mmol/L (8-16); BILIRUBIN,TOTAL 0.6 mg/dL (0.2-1.2); CALCIUM 9.4 mg/dL (8.4-10.2); CREATININE, SERUM 0.75 mg/dL (0.57-1.11); POTASSIUM 3.8 mmol/L (3.5-5.1); TOTAL PROTEIN 7.4 g/dL (6.5-8.1)
[2024-12-26] MEDS ORDERED: IOPAMIDOL 370 MG/ML 100 ML INFUS..BTL INJ ONE (12:28)
[2024-12-26 12:43] LABS: BILIRUBIN,URINE NEGATIVE (NEGATIVE); CLARITY,URINE CLEAR (CLEAR); COLOR,URINE YELLOW (YELLOW); GLUCOSE, URINE NEGATIVE (NEGATIVE); KETONES,URINE NEGATIVE (NEGATIVE); LEUKOCYTE ESTERASE ,URINE NEGATIVE (NEGATIVE); NITRITE,URINE NEGATIVE (NEGATIVE); PH,URINE 5.5 (5 - 7); PROTEIN,URINE DIPSTICK NEGATIVE (NEGATIVE); URINE UROBILINOGEN 0.2 mg/dL (0.2 - 1)
[2024-12-26] MEDS: SODIUM CHLORIDE 0.9% 1000ML 1,000 ML IV ONE (12:46)
[2024-12-26] MEDS: ONDANSETRON HCL INJ 2MG/ML 2ML 2 MG/ML VIAL IV STA (12:46)
[2024-12-26] MEDS: Morphine 2mg Syringe 2 MG/ML SYR IV ONE (12:47)
[2024-12-26 13:07] LABS: BACTERIA,URINE MODERATE /HPF; EPITHELIAL CELLS,URINE RARE /LPF
[2024-12-26 13:08] LABS: RBC,URINE 0-5 /HPF (0-5)
[2024-12-26 13:40] VITALS: BP 146/78; PULSE 62; RESP 18
[2024-12-26 14:00] VITALS: PULSE 63; RESP 18; O2SAT 95
[2024-12-26] MEDS ORDERED: AMOX TR-K CLV1 EAC2 PO (14:03)
== END 2024-12-26 14:42 | disposition home or self-care (01) ==
LOC: ER 11:27
DX: R10.12 Left upper quadrant pain (principal); K57.32 Diverticulitis of large intestine without perforation or abscess without bleeding; E78.5 Hyperlipidemia, unspecified; K21.9 Gastro-esophageal reflux disease without esophagitis
CPT/HCPCS: 36415; 74177; 80053; 81001; 83690; 85025; 87086; 99284; J2270; J2405; J7030; Q9967

== ENCOUNTER 2025-06-15 20:10 | Emergency (ER) | payer MEDICARE, OTHER ==
[~2025-06-15] VITALS: Ht 160 cm; Wt 81.6 kg
[~2025-06-15 20:10] MED LIST changes: +AMOX TR-K CLV1 EAC2 PO
[2025-06-15 21:08] LABS: BASOPHILS % 0.5 % (0.0-1.0); EOSINOPHILS % 1.5 % (0.0-6.0); LYMPHOCYTES % 17.3 % (18.0-39.1); MONOCYTES % 10.8 % (4.4-11.3); NEUTROPHILS % 69.7 % (38.7-80.0); RED CELL DISTRIBUTION WIDTH 13.2 % (11.7-14.4)
[2025-06-15 21:25] LABS: LEUKOCYTE ESTERASE ,URINE SMALL (NEGATIVE); PROTEIN,URINE DIPSTICK NEGATIVE (NEGATIVE); URINE UROBILINOGEN 0.2 mg/dL (0.2 - 1)
[2025-06-15 21:28] LABS: EST GLOMERULAR FILTRATION RATE 93.0 ML/MIN (>=60)
[2025-06-15 21:41] LABS: EPITHELIAL CELLS,URINE FEW /LPF
[2025-06-15] MEDS: ONDANSETRON HCL INJ 2MG/ML 2ML 2 MG/ML VIAL IV STA (22:04)
[2025-06-15] MEDS: Morphine 4mg INJECTION 4 MG/ML INJ IV ONE (22:05)
[2025-06-15] MEDS: SODIUM CHLORIDE 0.9% 1000ML 1,000 ML IV ONE (22:05)
[2025-06-15] MEDS ORDERED: IOPAMIDOL 370 MG/ML 100 ML INFUS..BTL INJ ONE (22:08)
[2025-06-16] MEDS ORDERED: HYDROCODON-ACE1 EA11 PO (01:05)
[2025-06-16] MEDS ORDERED: CIPRO500 MG PO (01:05)
[2025-06-16] MEDS ORDERED: ONDANSETRON ODT4 MG SL (01:05)
[2025-06-16] MEDS ORDERED: METRONIDAZOLE500 MG PO (01:05)
[2025-06-16 01:10] VITALS: PULSE 66; RESP 16; TEMP 98.6; O2SAT 100
[2025-06-16] MEDS: METRONIDAZOLE 500 MG TAB PO ONE (01:19)
[2025-06-16] MEDS: CIPROFLOXACIN 500 MG TAB PO ONE (01:19)
== END 2025-06-16 01:20 | disposition home or self-care (01) ==
LOC: ER 21:46
DX: R10.32 Left lower quadrant pain (principal); K57.32 Diverticulitis of large intestine without perforation or abscess without bleeding; E78.5 Hyperlipidemia, unspecified; K21.9 Gastro-esophageal reflux disease without esophagitis
CPT/HCPCS: 36415; 74177; 80053; 81001; 83690; 85025; 99284; J2270; J2405; J7030; Q9967